=== PATIENT | male | born 1980 | race Hispanic/Latino ===

== ENCOUNTER 2020-02-11 14:14 | Emergency (ER) | payer SELFPAY ==
[~2020-02-11] VITALS: Ht 167.6 cm; Wt 113.4 kg
[2020-02-11] MEDS ORDERED: LIDOCAINE HCL 1% LOCAL INJ 20 ML VIAL INJ STA (14:35)
[2020-02-11] MEDS ORDERED: TETANUS/DIPHTHERIA TOX ADULT 0.5 ML SYR IM STA (14:35)
--- NOTE | 2020-02-11 14:38 | Emergency Department Note ---
History of Present Illnes History of Present Illness Chief Complaint: Laceration History of Present Illness This is a 39 year old male BYRD cut the tip of his lef thumb parallel with his n ail on the volar side by a knife while he prepared lunch, 3 cm long, almost like a skin flap . 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 Any updates have been documented here. Past Medical History Recent Fever: No Past Medical History: None Social History Smoking Cessation: Unknown if ever smoked Alcohol Use: Social TB Exposure/Symptoms: No Physically hurt or threatened: No Family History Family history of heart diseas: No Review of Systems Review of Systems Constitutional: Reports no symptoms EENTM: Reports no symptoms Cardiovascular: Reports no symptoms Respiratory: Reports no symptoms Gastrointestinal: Reports no symptoms Genitourinary: Reports no symptoms Musculoskeletal: Reports no symptoms Integumentary: Reports as per HPI Neurological: Reports no symptoms Psychological: Reports no symptoms Endocrine: Reports no symptoms Hematological/Lymphatic: Reports no symptoms Physical Exam Related Data Allergies: Coded Allergies: No Known Allergies (Unverified , 02/11/20) Vital signs reviewed: Yes Physical Exam CONSTITUTIONAL Constitutional: Present well-developed, Present well-nourished HENT HENT: Present normocephalic, Present atraumatic, Present oropharynx clear/moist, Present nose normal HENT L/R: Present left ext ear normal, Present right ext ear normal EYES Eyes: Reports PERRL, Reports conjunctivae normal NECK Neck: Present ROM normal PULMONARY Pulmonary: Present effort normal, Present breath sounds normal CARDIOVASCULAR Cardiovascular: Present regular rhythm, Present heart sounds normal, Present capillary refill normal, Present normal rate GASTROINTESTINAL Abdominal: Present soft, Present nontender, Present bowel sounds normal GENITOURINARY Genitourinary: Present exam deferred SKIN Skin: Present warm, Present dry MUSCULOSKELETAL Musculoskeletal: Present ROM normal, Present other (cut on the tip of left thum as in HPI) NEUROLOGICAL Neurological: Present alert, Present oriented x 3, Present no gross motor or sensory deficits PSYCHOLOGICAL Psychological: Present mood/affect normal, Present judgement normal Procedures Laceration Laceration: Laceration 1 Site: upper extremity (left thumb) Side: left Size (cm): 3 Description: linear, flap Depth: involves muscle layer Local anesthesia: lidocaine 1% Pre-repair: wound exposed, deep structures intact Skin layer closed with: other (prolene) Size (cm): 3-0 Number of sutures: 7 Technique: simple, interrupted Assessment & Plan Medical Decision Making MDM laceration Assessment & Plan Final Impression: (1) Acute pain due to trauma (2) Laceration of left thumb Depart Disposition: HOME, SELF-[facility] Meds Active Scripts Ibuprofen (IBUPROFEN IB) 200 Mg Tablet, 3 TAB PO Q6H PRN for pain, #60 Prov:ROWDY FLORES MD 02/11/20 Cephalexin Monohydrate (KEFLEX) 500 Mg Capsule, 500 MG PO Q6H, #28 TAB 0 Refills Prov:ROWDY FLORES MD 02/11/20 Acetaminophen (ACETAMINOPHEN) 500 Mg Tablet, 1 TAB PO Q6H for pain or fever, #60 THERAPEUTICALLY SUBSTITUTED WITH ACETAMINOPHEN 325MG Prov:ROWDY FLORES MD 02/11/20 Physician Attestation Provider Attestation sutures removed 14 days ROWDY FLORES MD Feb 11, 2020 14:38
[2020-02-11] MEDS ORDERED: ACETAMINOPHEN500 MG PO (14:41)
[2020-02-11] MEDS ORDERED: IBUPROFEN IB200 MG PO (14:41)
[2020-02-11] MEDS ORDERED: KEFLEX500 MG PO (14:41)
[2020-02-11] MEDS ORDERED: LIDOCAINE HCL 2% LOCAL 20 ML VIAL ONE (14:53)
[2020-02-11] MEDS ORDERED: TETANUS/DIPHTHERIA TOX ADULT 0.5 ML SYR ONE (14:53)
== END 2020-02-11 15:48 | disposition home or self-care (01) ==
LOC: FSED 14:20
DX: S61.012A Laceration without foreign body of left thumb without damage to nail, initial encounter (principal); W26.0XXA Contact with knife, initial encounter; Y93.G3 Activity, cooking and baking; Y92.000 Kitchen of unspecified non-institutional (private) residence as the place of occurrence of the external cause
CPT/HCPCS: 13132; 90471; 90714; 99284; J2001 ×2